=== PATIENT | male | born 1960 | race Caucasian/White ===

== ENCOUNTER 2017-05-05 00:16 | Emergency (ER) | payer OTHER ==
[2017-05-05 00:23] VITALS: BP 116/56
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
[2017-05-05] MEDS ORDERED: Bacitracin/Neomycin/Polymyxin B Oint 0.9 GM U/D Packet TOP ONE (00:25)
== END 2017-05-05 00:55 | disposition home or self-care (01) ==
LOC: LL.ED 00:16
DX: T21.12XA Burn of first degree of abdominal wall, initial encounter (principal); Z88.1 Allergy status to other antibiotic agents; E78.00 Pure hypercholesterolemia, unspecified; Z98.890 Other specified postprocedural states; Z79.899 Other long term (current) drug therapy; Z87.891 Personal history of nicotine dependence; X19.XXXA Contact with other heat and hot substances, initial encounter; Y99.0 Civilian activity done for income or pay
CPT/HCPCS: 16000; 99282